=== PATIENT | female | born 1950 | race Caucasian/White ===

== ENCOUNTER 2019-03-09 17:10 | Emergency (ER) | payer MEDICARE, BC ==
[2019-03-09 17:33] VITALS: BP 146/78
--- NOTE | 2019-03-09 18:12 | ED ---
GI/ HPI - HPI Summary HPI Summary: 68 yr old female with the complaint of urinary frequency, urgency, hesitancy and dysuria. Onset of symptoms was three days ago. The patient has not had fever. She states her symptoms are moderate. No other complaints. - History of Current Complaint Chief Complaint: UCGU Time Seen by Provider: 03/09/19 17:51 Stated Complaint: URINARY Pain Intensity: 0 - Allergy/Home Medications Allergies/Adverse Reactions: Allergies Allergy/AdvReac Type Severity Reaction Status Date / Time No Known Allergies Allergy Verified 03/09/19 17:33 Home Medications: Home Medications Alendronate Sodium 40 mg PO WEEKLY 03/09/19 [History Confirmed 03/09/19] Amlodipine Besylate [Norvasc] 5 mg PO DAILY 03/09/19 [History Confirmed 03/09/19 ] Atorvastatin Calcium [Lipitor] 20 mg PO DAILY 03/09/19 [History Confirmed ] Calcium Citrate/Vitamin D3 [Citracal + D Maximum Caplet] 1 tab PO DAILY [History Confirmed 03/09/19] Estradiol VAG CM (NF) [Estrace VAG CM (NF)] 1 applic VAGINAL WEEKLY 03/09/19 [ History Confirmed 03/09/19] Glucosamine Sulfate Dipot Chlr [Glucosamine] 1 tab PO DAILY 03/09/19 [History Confirmed 03/09/19] Venlafaxine CAP (NF) [Effexor CAP (NF)] 75 mg PO DAILY 03/09/19 [History Confirmed 03/09/19] PMH/Surg Hx/FS Hx/Imm Hx Musculoskeletal History: Denies: Hx Osteoporosis - Surgical History Surgery Procedure, Year, and Place: LUMPECTOMY LT BREATST IN Infectious Disease History: No Infectious Disease History: Denies: Traveled Outside the [place] in Last 30 Days - Family History Known Family History: Positive: None - Social History Occupation: Retired Alcohol Use: None Substance Use Type: Reports: None Smoking Status (MU): Never Smoked Tobacco Review of Systems Constitutional: Negative Positive: dysuria, frequency, urgency All Other Systems Reviewed And Are Negative: Yes Physical Exam Triage Information Reviewed: Yes Vital Signs On Initial Exam: Initial Vitals Temp Pulse Resp BP Pulse Ox 98.2 F 76 20 146/78 98 03/09/19 17:29 03/09/19 17:29 03/09/19 17:29 03/09/19 17:29 03/09/19 17:29 Vital Signs Reviewed: Yes Appearance: Positive: Well-Appearing, No Pain Distress Skin: Positive: Warm, Skin Color Reflects Adequate Perfusion Head/Face: Positive: Normal Head/Face Inspection Eyes: Positive: EOMI ENT: Positive: Normal ENT inspection Neck: Positive: Nontender Respiratory/Lung Sounds: Positive: Clear to Auscultation, Breath Sounds Present Cardiovascular: Positive: RRR. Negative: Murmur Abdomen Description: Negative: CVA Tenderness (R), CVA Tenderness (L), Distended Musculoskeletal: Positive: Strength/ROM Intact Neurological: Positive: Sensory/Motor Intact, Alert, Oriented to Person Place, Time, CN Intact II-III Psychiatric: Positive: Normal Diagnostics - Vital Signs Vital Signs Temp Pulse Resp BP Pulse Ox 03/09/19 17:29 98.2 F 76 20 146/78 98 - Laboratory Lab Results: Lab Results 03/09/19 Range/Units 17:44 POC Urine Color Yellow POC Urine Clarity Cloudy POC Urine pH 6.0 (5-9) POC Ur Specif [place] >= 1.030 (1.010-1.030) POC Urine Protein 1+ A (Negative) POC Ur Glucose (UA) Negative (Negative) POC Urine Ketones Trace A (Negative) POC Urine Blood 2+ A (Negative) POC Urine Nitrite Negative (Negative) POC Urine Bilirubin Negative (Negative) POC Urine Urobilinogen 0.2 (Negative) POC U Leukocyte Esteras 3+ A (Negative) Lab Statement: Any lab studies that have been ordered have been reviewed, and results considered in the medical decision making process. GIGU Course/Dx - Course Course Of Treatment: 68 yr old with UTI. Rx keflex. - Diagnoses Provider Diagnoses: UTI (urinary tract infection), Hypertension Discharge - Sign-Out/Discharge Documenting (check all that apply): Patient Departure All imaging exams completed and their final reports reviewed: No Studies - Discharge Plan Condition: Good Disposition: HOME Prescriptions: Cephalexin CAP* [Keflex CAP*] 500 mg PO TID #15 cap Patient Education Materials: Urinary Tract Infection in Women (DC), Hypertension (ED) Referrals: Bere Espinal MD [Primary Care Provider] - 2 Days - Billing Disposition and Condition Condition: GOOD Disposition: Home
== END 2019-03-09 18:14 | disposition home or self-care (01) ==
LOC: UCCORT 17:10
DX: N39.0 Urinary tract infection, site not specified (principal); I10 Essential (primary) hypertension
CPT/HCPCS: 81003; 87077; 87086; 87186; 99212; G0463

== ENCOUNTER 2019-06-04 15:32 | Emergency (ER) | payer MEDICARE, BC ==
[2019-06-04 15:49] VITALS: BP 143/78
--- NOTE | 2019-06-04 16:17 | UC ---
Skin Complaint HPI - HPI Summary HPI Summary: Pt presents with c/o tick attached to right lateral chest, trunk. Pt states that she was outside gardening "all day" yesterday. - History of Current Complaint Chief Complaint: UCSkin Time Seen by Provider: 06/04/19 16:08 Stated Complaint: TICK Hx Obtained From: Patient ?: No Onset/Duration: Sudden Onset, Lasting Hours, Still Present Skin Exposure Onset/Duration: Days Ago - 1 Timing: Constant Onset Severity: Mild Current Severity: Mild Pain Intensity: 0 Location: Discrete Aggravating Factor(s): Touch Alleviating Factor(s): Nothing Associated Signs & Symptoms: Positive: Negative Related History: Insect Bite/Sting - tick still attached - Allergy/Home Medications Allergies/Adverse Reactions: Allergies Allergy/AdvReac Type Severity Reaction Status Date / Time No Known Allergies Allergy Verified 06/04/19 15:49 PMH/Surg Hx/FS Hx/Imm Hx Previously Healthy: Yes - Surgical History Surgical History: Yes Surgery Procedure, Year, and Place: LUMPECTOMY LT BREATST IN - Family History Known Family History: Positive: Cardiac Disease - Social History Occupation: Retired Lives: With Family Alcohol Use: None Substance Use Type: None Smoking Status (MU): Never Smoked Tobacco Have You Smoked in the Last Year: No Review of Systems All Other Systems Reviewed And Are Negative: Yes Constitutional: Positive: Negative Skin: Positive: Negative Eyes: Positive: Negative ENT: Positive: Negative Respiratory: Positive: Negative Cardiovascular: Positive: Negative Gastrointestinal: Positive: Negative Genitourinary: Positive: Negative Motor: Positive: Negative Neurovascular: Positive: Negative Musculoskeletal: Positive: Negative Neurological: Positive: Negative Psychological: Positive: Negative Is Patient Immunocompromised?: No Physical Exam Triage Information Reviewed: Yes Appearance: Well-Appearing Vital Signs: Initial Vital Signs Temp 99.2 F 06/04/19 15:44 Pulse 84 06/04/19 15:44 Resp 18 06/04/19 15:44 BP 143/78 06/04/19 15:44 Pulse Ox 100 06/04/19 15:44 Vital Signs Reviewed: Yes Eye Exam: Normal ENT: Positive: Hearing grossly normal Dental Exam: Normal Neck exam: Normal Respiratory: Positive: No respiratory distress Musculoskeletal Exam: Normal Neurological Exam: Normal Psychological Exam: Normal Skin Exam: Other - tick with slightly engorged abdomen. Course/Dx - Differential Diagnoses - Skin Complaint Differential Diagnoses: Tick Born Illness - Diagnoses Provider Diagnosis: Tick bite with subsequent removal of tick Discharge ED - Sign-Out/Discharge Documenting (check all that apply): Patient Departure All imaging exams completed and their final reports reviewed: No Studies - Discharge Plan Condition: Stable Disposition: HOME Prescriptions: DOXYcycline CAP(*) [DOXYcycline 100MG CAP(*)] 200 mg PO ONCE #2 cap Patient Education Materials: Tick Bite (ED) Referrals: Bere Espinal MD [Primary Care Provider] - If Needed - Billing Disposition and Condition Condition: STABLE Disposition: Home
== END 2019-06-04 16:22 | disposition home or self-care (01) ==
LOC: UCCORT 15:32
DX: S20.369A Insect bite (nonvenomous) of unspecified front wall of thorax, initial encounter (principal); S30.861A Insect bite (nonvenomous) of abdominal wall, initial encounter; W57.XXXA Bitten or stung by nonvenomous insect and other nonvenomous arthropods, initial encounter; Y93.H2 Activity, gardening and landscaping; Y92.9 Unspecified place or not applicable
CPT/HCPCS: 99212; G0463

== ENCOUNTER 2019-07-14 11:51 | Emergency (ER) | payer MEDICARE, BC ==
[2019-07-14 12:12] VITALS: BP 142/81
--- NOTE | 2019-07-14 12:30 | UC ---
Complaint Female HPI - HPI Summary HPI Summary: 68-year-old female with burning and frequency on urination since yesterday. She denies any fever or chills. 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 She does do a straight catheter once a week however she states she maintains sterility as much as possible. - History Of Current Complaint Chief Complaint: UCGU Stated Complaint: URINARY Time Seen by Provider: 07/14/19 12:02 Hx Obtained From: Patient ?: No Onset/Duration: Gradual Onset Timing: Intermittent Severity Initially: Mild Severity Currently: Mild Pain Intensity: 0 Character: Burning Aggravating Factor(s): Urination Associated Signs And Symptoms: Positive: Negative - Allergies/Home Medications Allergies/Adverse Reactions: Allergies Allergy/AdvReac Type Severity Reaction Status Date / Time No Known Allergies Allergy Verified 07/14/19 12:05 PMH/Surg Hx/FS Hx/Imm Hx Previously Healthy: Yes Cardiovascular History: Hypertension - Surgical History Surgical History: Yes Surgery Procedure, Year, and Place: LUMPECTOMY LT BREATST IN - Family History Known Family History: Positive: None, Cardiac Disease - Social History Occupation: Retired Alcohol Use: None Substance Use Type: None Smoking Status (MU): Never Smoked Tobacco Have You Smoked in the Last Year: No Review of Systems All Other Systems Reviewed And Are Negative: Yes Cardiovascular: Positive: Negative Genitourinary: Positive: Dysuria, Frequency, Urgency Musculoskeletal: Negative: Edema Is Patient Immunocompromised?: No Physical Exam Triage Information Reviewed: Yes Appearance: Well-Appearing, No Pain Distress, Well-Nourished Vital Signs: Initial Vital Signs Temp 98.3 F 07/14/19 12:07 Pulse 91 07/14/19 12:07 Resp 16 07/14/19 12:07 BP 142/81 07/14/19 12:07 Pulse Ox 95 07/14/19 12:07 Vital Signs Reviewed: Yes Respiratory: Positive: Lungs clear, Normal breath sounds, No respiratory distress, No accessory muscle use Cardiovascular: Positive: RRR, Pulses Normal, Brisk Capillary Refill, Murmur:Sys :Grade _?_/ - Grade III/ murmur heard on both Right upper and Left upper chest Abdomen Description: Positive: Nontender, No Organomegaly, Soft. Negative: CVA Tenderness (R), CVA Tenderness (L), Distended, Guarding, Hepatomegaly, Splenomegaly Bowel Sounds: Positive: Present Musculoskeletal Exam: Normal Neurological Exam: Normal Psychological Exam: Normal Skin Exam: Normal Complaint Female Dx - Course Course Of Treatment: Urinalysis was positive for urinary tract infection. The patient is comfortable here. She states she has never had a heart murmur however the one I heard today was approximately 3/6 or 4/6 heard in both the upper left and right chest. She denies any chest pain difficulty breathing. She has no pedal edema. She states she is very healthy and walks 3 miles every day. We discussed follow-up with her primary care provider or a dialer for the new onset murmur. Patient is in agreement with this and she will follow-up with her doctor. We also discussed ways to decrease the risk of urinary tract infections. - Differential Dx/Diagnosis Provider Diagnosis: UTI (urinary tract infection), Heart murmur previously undiagnosed Discharge ED - Sign-Out/Discharge Documenting (check all that apply): Patient Departure All imaging exams completed and their final reports reviewed: No Studies - Discharge Plan Condition: Good Disposition: HOME Prescriptions: Nitrofurantoin Monohyd/M-Cryst [Macrobid 100 mg Capsule] 100 mg PO BID 7 Days # 14 cap Patient Education Materials: Urinary Tract Infection in Older Adults (ED) Referrals: Bere Espinal MD [Primary Care Provider] - Additional Instructions: Increase fluids, go to the emergency room if you develop fever, back pain or vomiting. Follow-up with your primary care provider or dialer to recheck the heart murmur that was heard today. - Billing Disposition and Condition Condition: GOOD Disposition: Home
--- NOTE | 2019-07-17 07:43 | UC ---
- Progress Note Progress Note: + E coli insensitive to macrobid sent Rx augmentin please call pt - change abx recommend pro-biotic Course/Dx - Diagnoses Provider Diagnoses: UTI (urinary tract infection), Heart murmur previously undiagnosed Discharge ED - Sign-Out/Discharge Documenting (check all that apply): Post-Discharge Follow Up All imaging exams completed and their final reports reviewed: No Studies - Discharge Plan Condition: Good Disposition: HOME Prescriptions: Nitrofurantoin Monohyd/M-Cryst [Macrobid 100 mg Capsule] 100 mg PO BID 7 Days # 14 cap Patient Education Materials: Urinary Tract Infection in Older Adults (ED) Referrals: Bere Espinal MD [Primary Care Provider] - Additional Instructions: Increase fluids, go to the emergency room if you develop fever, back pain or vomiting. Follow-up with your primary care provider or business writer to recheck the heart murmur that was heard today. - Billing Disposition and Condition Condition: GOOD Disposition: Home
== END 2019-07-14 12:36 | disposition home or self-care (01) ==
LOC: UCCORT 11:51
DX: N39.0 Urinary tract infection, site not specified (principal); I10 Essential (primary) hypertension; R01.1 Cardiac murmur, unspecified
CPT/HCPCS: 81003; 87077; 87086; 87186; 99212; G0463